=== PATIENT | female | born 1975 | race Caucasian/White ===

== ENCOUNTER → 2019-11-10 12:45 | Outpatient (BNVA) | payer BC, SELFPAY | PROVIDERS: Family Provider Family Medicine; Visit Provider Dermatology | DX: L30.1 Dyshidrosis [pompholyx] (principal); D23.9 Other benign neoplasm of skin, unspecified; D18.01 Hemangioma of skin and subcutaneous tissue; L53.9 Erythematous condition, unspecified | CPT/HCPCS: 99203 ==

== ENCOUNTER → 2021-01-14 08:48 | Outpatient (BNVA) | payer BC, SELFPAY | PROVIDERS: Family Provider Family Medicine; Visit Provider Obstetrics & Gynecology | DX: L30.1 Dyshidrosis [pompholyx] (principal); N92.6 Irregular menstruation, unspecified; Z12.4 Encounter for screening for malignant neoplasm of cervix | CPT/HCPCS: 83036; 84443; 85025; 88175; 88305 ==

== ENCOUNTER → 2021-01-28 14:21 | Outpatient (BNVA) | payer BC, SELFPAY | PROVIDERS: Family Provider Family Medicine; Visit Provider Obstetrics & Gynecology | DX: N93.9 Abnormal uterine and vaginal bleeding, unspecified (principal) | CPT/HCPCS: 76830 ==

== ENCOUNTER → 2022-11-19 16:25 | Outpatient (BNVA) | payer BC, SELFPAY | PROVIDERS: Family Provider Family Medicine; Visit Provider Obstetrics & Gynecology | DX: Z12.4 Encounter for screening for malignant neoplasm of cervix (principal); N93.9 Abnormal uterine and vaginal bleeding, unspecified; N95.1 Menopausal and female climacteric states | CPT/HCPCS: 87624 ==

== ENCOUNTER → 2022-12-16 15:45 | Outpatient (BNVA) | payer BC, SELFPAY | PROVIDERS: Family Provider Family Medicine; Visit Provider Obstetrics & Gynecology | DX: N93.9 Abnormal uterine and vaginal bleeding, unspecified (principal) | CPT/HCPCS: 76830 ==

== ENCOUNTER 2022-12-19 15:17 | Outpatient (CLI) | payer BC, SELFPAY ==
--- NOTE | 2022-12-19 15:22 | MM_ITS ---
WS: [id number] BILATERAL 3D TOMOSYNTHESIS DIGITAL SCREENING MAMMOGRAPHY WITH CAD CLINICAL INFORMATION: SCREENING HISTORY: Screening mammogram. No current complaints. COMPARISON: 2017 TECHNIQUE: Bilateral CC and MLO views. FINDINGS: The breasts are composed of heterogeneous fibroglandular density tissue, which can limit the detectio n of small underlying mass lesions. No suspicious mass, asymmetry, calcifications, or architectural d istortion. No evidence of malignancy. A few incidental punctate calcifications. IMPRESSION: MM/[place] [id number] BI-RADS: 2-Benign FOLLOW UP: 1 Year Follow-up Recommend return to annual screening mammography.
== END 2022-12-19 15:18 | disposition home or self-care (01) ==
LOC: RAD 15:21 → MOBLMAM 15:21
PROVIDERS: Family Provider Family Medicine; Visit Provider Family Medicine
DX: Z12.31 Encounter for screening mammogram for malignant neoplasm of breast (principal)
CPT/HCPCS: 77063; 77067

== ENCOUNTER 2025-03-20 15:22 | Outpatient (CLI) | payer BC, SELFPAY ==
--- NOTE | 2025-03-20 15:26 | MM_ITS ---
WS: [id number] BILATERAL 3D TOMOSYNTHESIS DIGITAL SCREENING MAMMOGRAPHY WITH CAD CLINICAL INFORMATION: SCREENING HISTORY: Screening mammogram. No current complaints. COMPARISON: 2022 TECHNIQUE: Bilateral CC and MLO views. FINDINGS: The breasts are composed of heterogeneous fibroglandular density tissue, which can limit the detection of small underlying mass lesions. No suspicious mass, asymmetry, calcifications, or architectural distortion. No evidence of malignancy. A few incidental punctate calcifications. MM/MM [facility] tomosynthesis [id number] IMPRESSION: DENSITY: The breasts are heterogeneously dense, which may obscure small masses. BI-RADS: 2 - Benign FOLLOW UP: 1 Year Follow-up Recommend return to annual screening mammography.
== END 2025-03-20 15:23 | disposition home or self-care (01) ==
LOC: RAD 15:24
PROVIDERS: PCP Thoracic Surgery (Cardiothoracic Vascular Surgery); Visit Provider Thoracic Surgery (Cardiothoracic Vascular Surgery)
DX: Z12.31 Encounter for screening mammogram for malignant neoplasm of breast (principal); R92.333 Mammographic heterogeneous density, bilateral breasts; R92.323 Mammographic fibroglandular density, bilateral breasts; R92.1 Mammographic calcification found on diagnostic imaging of breast
CPT/HCPCS: 77063; 77067